=== PATIENT | female | born 1945 | race Caucasian/White ===

== ENCOUNTER → 2016-12-30 | Outpatient (CLI) | payer MEDICARE, BC ==
[~2016-12-30] MED LIST: AMOX875T2 PO; ATEN50TA PO; ATOR10TA15 PO; MULT1TAB84 PO; OMEG5CAP PO; PROT40TA PO; VENTAER INH
[2016-12-30 12:06] LABS: HDL CHOLESTEROL 49.2 MG/DL (40.0-60.0)
== END ==
LOC: PLAB 06:59
PROVIDERS: ATTEND Family Medicine
DX: E78.2 Mixed hyperlipidemia (principal)
CPT/HCPCS: 36415; 80061

== ENCOUNTER → 2017-10-29 | Outpatient (CLI) | payer MEDICARE, BC ==
[2017-10-29 12:17] LABS: BICARBONATE 29.2 MEQ/L (21.0-32.0); BLOOD UREA NITROGEN 21 MG/DL (7-18); CALCIUM 8.9 MG/DL (8.5-10.1); CHLORIDE 109 MEQ/L (98-107); CHOLESTEROL 190 MG/DL (120-200); CREATININE 1.11 MG/DL (0.50-1.00); GLOMERULAR FILTRATION RATE 48 ML/MIN (>89); GLUCOSE,FASTING 102 MG/DL (74-99); SODIUM (NA) 143 MEQ/L (136-145)
[2017-10-29 12:20] LABS: CHOLESTEROL/ HDL RATIO 4.19 RATIO; HDL CHOLESTEROL 45.3 MG/DL (40.0-60.0); LDL CHOLESTEROL 117 MG/DL (0-99); TRIGLYCERIDES 139 MG/DL (42-150)
[2017-10-29 16:55] LABS: HEMOGLOBIN A1C 5.6 % (4.3-6.0)
== END ==
LOC: PLAB 08:55
PROVIDERS: ATTEND Family Medicine
DX: R73.09 Other abnormal glucose (principal); E78.1 Pure hyperglyceridemia
CPT/HCPCS: 36415; 80048; 80061; 83036

== ENCOUNTER 2018-01-28 15:13 | Inpatient (IN) | payer MEDICARE, BC ==
[~2018-01-28] VITALS: Ht 170.2 cm; Wt 88.0 kg
[2018-01-28 15:45] VITALS: BP 118/55; PULSE 75; RESP 16; TEMP 97.8; O2SAT 97
[2018-01-28] MEDS ORDERED: METO25TA3 PO (16:02)
[2018-01-28] MEDS ORDERED: SODIUM CHLORIDE 0.9% FLUSH 10 ML FLUSH IVF PRN (16:15)
--- NOTE | 2018-01-28 16:42 | RADRPT ---
EXAM DATE/TIME: 01/28/2018 16:31 [facility] COMPARISON: No previous studies available for comparison. INDICATIONS : Left hip pain post fall today MEDICAL HISTORY : None. SURGICAL HISTORY : None. ENCOUNTER: Initial ACUITY: 1 day PAIN SCORE: 10/10 LOCATION: Left entire hip FINDINGS: Examination of the left hip was performed with AP Pelvis. The primary and secondary trabecular patte rn of the femoral neck is intact. The hip joint is of normal width without significant sclerosis or bony hypertrophy. The acetabulum is grossly intact. There is a fracture of the superior pubic ramus medially on the left CONCLUSION: Nondisplaced fracture of the suprapubic ramus on the left. The femoral head and neck are unremarkable. Harvey Miranda MD on January 28, 2018 at 16:38 Board Certified Radiologist. This report was verified electronically.
[2018-01-28 16:44] LABS: AUTOMATED NEUTROPHIL # 3.8 TH/MM3 (1.8-7.7); BASOPHIL % 0.5 % (0.0-2.0); EOSINOPHIL # 0.1 TH/MM3 (0-0.4); HEMOGLOBIN 11.5 GM/DL (11.6-15.3); LYMPH % 27.8 % (9.0-44.0); LYMPHOCYTE # 1.7 TH/MM3 (1.0-4.8); MEAN CELL VOLUME 90.4 FL (80.0-100.0); MEAN CORPUSCULAR HEMOGLOBIN 31.6 PG (27.0-34.0); MEAN PLATELET VOLUME 8.6 FL (7.0-11.0); MONO % 7.4 % (0.0-8.0); MONOCYTE # 0.4 TH/MM3 (0-0.9); NEUT % 62.3 % (16.0-70.0); PLATELET COUNT 135 TH/MM3 (150-450); RED BLOOD COUNT 3.65 MIL/MM3 (4.00-5.30); RED CELL DISTRIBUTION WIDTH 13.2 % (11.6-17.2); WHITE BLOOD COUNT 6.1 TH/MM3 (4.0-11.0)
--- NOTE | 2018-01-28 16:45 | RADRPT ---
EXAM DATE/TIME: 01/28/2018 16:27 [facility] COMPARISON: No previous studies available for comparison. INDICATIONS : Left wrist pain post fall today MEDICAL HISTORY : None. SURGICAL HISTORY : None. ENCOUNTER: Initial ACUITY: 1 day PAIN SCORE: 5/10 LOCATION: Left entire wrist FINDINGS: Three view examination of the left wrist demonstrates arthritic change of the radial scaphoid articul ation. No acute fracture seen. Bony mineralization is normal. 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 Chondrocalcinosis raises the possibility of CPPD. Harvey Miranda MD on January 28, 2018 at 16:40 Board Certified Radiologist. This report was verified electronically.
--- NOTE | 2018-01-28 16:53 | PD ---
HPI Chief Complaint: Hip Injury Time Seen by Provider: 16:09 Travel History International Travel<30 days: No Contact w/Intl Traveler<30days: No Traveled to known affect area: No History of Present Illness HPI 72 y/o female states she was trying to save baby ducks when she had a trip and fall. She did not hit her head or blackout. She has pain to her left hip and left elbow. Quality pain is sharp. Severity is severe. Pain is worse with movement. She was given morphine 2 mg prior to arrival for pain and this dropped her blood pressure significantly so additional pain medication was held. Pain is worse with movement. She denies other modifying factors. Duration shortly prior to arrival. PFSH Past Medical History Arthritis: No Asthma: Yes Heart Rhythm Problems: No Cancer: Yes (BREAST) Cardiovascular Problems: No High Cholesterol: Yes Chest Pain: No Congestive Heart Failure: No Cerebrovascular Accident: No Diabetes: No Diminished Hearing: No Endocrine: No Gastrointestinal Disorders: Yes (gerd) Glaucoma: No Headaches: No Hepatitis: No Hiatal Hernia: No Hypertension: Yes Immune Disorder: No Musculoskeletal: Yes (arthritis and previous injury) Neurologic: No Psychiatric: No Reproductive: No Respiratory: Yes (asthma, cold induced ) Migraines: No Myocardial Infarction: No Seizures: No Thyroid Disease: No Past Surgical History AICD: No Appendectomy: Yes Genitourinary Surgery: Yes (BLADDER LIFT) Gynecologic Surgery: Yes (hysterectomy) Hysterectomy: Yes Joint Replacement: No Oral Surgery: Yes (tonsillectomy,sinus surgery) Pacemaker: No Thoracic Surgery: Yes (x3 breast lumpectomy) Tonsillectomy: Yes Other Surgery: Yes (LEFT BREAST BIOPSY AND LUMPECTOMY) Social History Alcohol Use: No Tobacco Use: No Substance Use: No Allergies-Medications (Allergen,Severity, Reaction): Coded Allergies: cortisone (Unverified Allergy, Severe, RADICAL FLUSHING, 01/28/18) penicillin G (Unverified Allergy, Severe, HIVES, 01/28/18) pt states not allergic phenazopyridine (Unverified Allergy, Mild, 01/28/18) unknown reaction Uncoded Allergies: steroids (Allergy, Unknown, Restlessness, 09/03/16) all steroids Reported Meds & Prescriptions Reported Meds & Active Scripts Active Reported Metoprolol Tartrate 25 Mg Tab 25 Mg PO BID Atorvastatin (Atorvastatin Calcium) 10 Mg Tab 10 Mg PO HS Review of Systems Except as stated in HPI: all other systems reviewed are Neg Physical Exam Narrative General: 72 y/o patient in no apparent distress Skin: trauma noted to left elbow with abrasion Eyes: Pupils equal, eomi ENT: no septal hematoma NECK: no pain with palpation and range of motion in midline Cardiovascular: Regular rate and rhythm Respiratory: Normal respiratory effort noted, clear to auscultation bilaterally Abdomen: soft, nontender, nondistended Extremities: Pain with palpation of left hip, no lacerations over, neurovascularly intact, no pain with palpation of other joints except for left elbow Neuro: awake, alert, sensation and motor grossly intact Data Data Last Documented VS Vital Signs Date Time Temp Pulse Resp B/P (MAP) Pulse Ox O2 Delivery O2 Flow Rate FiO2 01/28/18 18:40 78 18 151/74 (99) 98 Room Air 01/28/18 15:45 97.8 Orders Orders Complete Blood Count With Diff (01/28/18 16:11) Comprehensive Metabolic Panel (01/28/18 16:11) Prothrombin Time / Inr (Pt) (01/28/18 16:11) Act Partial Throm Time (Ptt) (01/28/18 16:11) Type And Screen (01/28/18 16:11) Hip, Uni(Ap&Lat) W Ap Pelvis (01/28/18 16:11) Iv Access Insert/Monitor (01/28/18 16:11) Oximetry (01/28/18 16:11) Ecg Monitoring (01/28/18 16:11) Sodium Chloride 0.9% Flush (Ns Flush) (01/28/18 16:15) Wrist, Complete ([id number]) (01/28/18 ) Elbow, Complete (4 Vws) (01/28/18 ) Admit Order (Ed Use Only) (01/28/18 18:51) Labs Laboratory Tests Test 01/28/18 16:15 White Blood Count 6.1 TH/MM3 Red Blood Count 3.65 MIL/MM3 Hemoglobin 11.5 GM/DL Hematocrit 33.0 % Mean Corpuscular Volume 90.4 FL Mean Corpuscular Hemoglobin 31.6 PG Mean Corpuscular Hemoglobin Concent 35.0 % Red Cell Distribution Width 13.2 % Platelet Count 135 TH/MM3 Mean Platelet Volume 8.6 FL Neutrophils (%) (Auto) 62.3 % Lymphocytes (%) (Auto) 27.8 % Monocytes (%) (Auto) 7.4 % Eosinophils (%) (Auto) 2.0 % Basophils (%) (Auto) 0.5 % Neutrophils # (Auto) 3.8 TH/MM3 Lymphocytes # (Auto) 1.7 TH/MM3 Monocytes # (Auto) 0.4 TH/MM3 Eosinophils # (Auto) 0.1 TH/MM3 Basophils # (Auto) 0.0 TH/MM3 CBC Comment DIFF FINAL Differential Comment Prothrombin Time 10.2 SEC Prothromb Time International Ratio 1.0 RATIO Activated Partial Thromboplast Time 20.0 SEC Blood Urea Nitrogen 27 MG/DL Creatinine 1.14 MG/DL Random Glucose 118 MG/DL Total Protein 6.6 GM/DL Albumin 3.6 GM/DL Calcium Level 8.9 MG/DL Alkaline Phosphatase 56 U/L Aspartate Amino Transf (AST/SGOT) 27 U/L Alanine Aminotransferase (ALT/SGPT) 23 U/L Total Bilirubin 0.3 MG/DL Sodium Level 144 MEQ/L Potassium Level 4.0 MEQ/L Chloride Level 110 MEQ/L Carbon Dioxide Level 27.1 MEQ/L Anion Gap 7 MEQ/L Estimat Glomerular Filtration Rate 47 ML/MIN MDM Medical Decision Making Medical Screen Exam Complete: Yes Emergency Medical Condition: Yes Medical Record Reviewed: Yes (Past history confirmed) Interpretation(s) CBC & BMP Diagram 01/28/18 16:15 Total Protein 6.6, Albumin 3.6, Calcium Level 8.9, Alkaline Phosphatase 56, Aspartate Amino Transf (AST/SGOT) 27, Alanine Aminotransferase (ALT/SGPT) 23, Total Bilirubin 0.3 Last 24 hours Impressions Hip and Pelvis X-Ray 01/28/18 1611 Signed Impressions: Service Date/Time: Sunday, January 28, 2018 16:31 - CONCLUSION: Nondisplaced fracture of the suprapubic ramus on the left. The femoral head and neck are unremarkable. Harvey Miranda MD Wrist X-Ray 01/28/18 0000 Signed Impressions: Service Date/Time: Sunday, January 28, 2018 16:27 - CONCLUSION: Unremarkable examination of the left wrist except for osteoarthritis of the radial scaphoid articulation. Chondrocalcinosis raises the possibility of CPPD. Harvey Miranda MD Elbow X-Ray 01/28/18 0000 Signed Impressions: Service Date/Time: Sunday, January 28, 2018 18:00 - CONCLUSION: Comminuted fracture of the radial head with approximately 3 mm of depression. Amadou Lovett MD Differential Diagnosis Fracture, strain, sprain Narrative Course We will check blood work and trauma imaging and reevaluate ED workup shows fracture to left radial head and left superior pubic rami. Will discuss with orthopedic physician and admit, patient updated and agrees to plan Physician Communication Physician Communication dr contreras states npo after midnight dr childress agrees to admit Diagnosis Primary Impression: Elbow fracture, left Qualified Codes: S42.402A - Unspecified fracture of lower end of left humerus , initial encounter for closed fracture Additional Impression: Fracture of pubic ramus Qualified Codes: S32.592A - Other specified fracture of left pubis, initial encounter for closed fracture Admitting Information Admitting Physician Requests: Admit Kristen Ortega MD Jan 28, 2018 16:53
[2018-01-28 16:54] LABS: PROTHROMBIN TIME - PATIENT 10.2 SEC (9.8-11.6)
[2018-01-28 16:55] VITALS: O2SAT 98
[2018-01-28 17:07] LABS: ALT (GPT) 23 U/L (10-53)
[2018-01-28 17:09] LABS: ALKALINE PHOSPHATASE 56 U/L (45-117); TOTAL BILIRUBIN ADULT 0.3 MG/DL (0.2-1.0); TOTAL PROTEIN 6.6 GM/DL (6.4-8.2)
[2018-01-28 17:13] LABS: ALBUMIN 3.6 GM/DL (3.4-5.0); AST (GOT) 27 U/L (15-37); BICARBONATE 27.1 MEQ/L (21.0-32.0); BLOOD UREA NITROGEN 27 MG/DL (7-18); CALCIUM 8.9 MG/DL (8.5-10.1); CHLORIDE 110 MEQ/L (98-107); CREATININE 1.14 MG/DL (0.50-1.00); GLOMERULAR FILTRATION RATE 47 ML/MIN (>89); GLUCOSE,RANDOM 118 MG/DL (74-106); SODIUM (NA) 144 MEQ/L (136-145)
--- NOTE | 2018-01-28 18:26 | RADRPT ---
EXAM DATE/TIME: 01/28/2018 18:00 [facility] COMPARISON: No previous studies available for comparison. INDICATIONS : Patient complains of left elbow pain status post fall today. MEDICAL HISTORY : None. SURGICAL HISTORY : None. ENCOUNTER: Initial ACUITY: 1 day PAIN SCORE: 5/10 LOCATION: Left Elbow FINDINGS: There is a comminuted radial head fracture with approximately 3 mm of depression. The fracturing invo lves the lateral half of the radial head. Other bones of the left elbow are intact. There is a large lipohemarthrosis. CONCLUSION: Comminuted fracture of the radial head with approximately 3 mm of depression. Amadou Lovett MD on January 28, 2018 at 18:22 Board Certified Radiologist. This report was verified electronically.
[2018-01-28 18:40] VITALS: BP 151/74; PULSE 78; RESP 18; O2SAT 98
[2018-01-28 19:11] VITALS: BP 143/72; PULSE 75; RESP 18; O2SAT 96
[2018-01-28] MEDS: SODIUM CHLOR 0.9% 1000 ML INJ 1,000 ML IV SCH (19:36)
--- NOTE | 2018-01-28 19:39 | HHI.HP ---
[facility] Service [facility] Primary Care Physician Dante Rodriguez MD Admission Diagnosis fall, left elbow fracture, left pubic rami fracture Diagnoses: (1) Fall Diagnosis: Principal (2) Fracture of pubic ramus Diagnosis: Principal (3) Elbow fracture, left Diagnosis: Principal (4) Renal insufficiency Diagnosis: Principal Travel History International Travel<30 Days: No Contact w/Intl Traveler <30 Da: No Traveled to Known Affected Are: No History of Present Illness This is a 72-year-old female with a PMH of HTN, Hyperlipidemia and Breast CA who was brought to the ER by EMS after fall with left hip and left elbow pain. Patient states that she was trying to save 15 baby ducklings that were crossing the road on [address] when she accidentally tripped and fell onto her left side. No LOC or head trauma. On arrival, BP 118/55, HR 75, O2 sat 97% RA, Afebrile. CBC essentially unremarkable. Platelets 135, previously 140 on 04/10/2017. Creatinine 1.14, previously 1.11 on 10/29/2017. INR 1.0. Hip X-ray with nondisplaced fracture of suprapubic ramus on the left. Elbow X-ray comminuted fracture of the radial head with 3 mm of depression. Wrist X-ray unremarkable. Dr. Garcia consulted by ER physician, plan is for possible surgical intervention w/ Dr. Valdovinos in am. Review of Systems Except as stated in HPI: all other systems reviewed are Neg ROS: 14 point review of systems otherwise negative. Past Family Social History Past Medical History PMH: HTN, Hyperlipidemia and Breast CA Past Surgical History PAST SURGICAL HISTORY: Appendectomy, Bladder Lift, Hysterectomy, Tonsillectomy, Breast Lumpectomy Allergies: Coded Allergies: cortisone (Unverified Allergy, Severe, RADICAL FLUSHING, 01/28/18) penicillin G (Unverified Allergy, Severe, HIVES, 01/28/18) pt states not allergic phenazopyridine (Unverified Allergy, Mild, 01/28/18) unknown reaction Uncoded Allergies: steroids (Allergy, Unknown, Restlessness, 09/03/16) all steroids Family History PAST FAMILY HISTORY: Reviewed. No h/o DM or CAD Social History PAST SOCIAL HISTORY: Negative for alcohol, tobacco or drugs. Physical Exam Vital Signs Vital Signs Date Time Temp Pulse Resp B/P (MAP) Pulse Ox O2 Delivery O2 Flow Rate FiO2 01/28/18 19:11 75 18 143/72 (95) 96 Room Air 01/28/18 18:40 78 18 151/74 (99) 98 Room Air 01/28/18 16:55 98 Room Air 01/28/18 15:45 97.8 75 16 118/55 (76) 97 Physical Exam PE: GENERAL: Extremely pleasant elderly white female in no acute distress. Family at bedside. HEENT: PERRLA, EOMI. No scleral icterus or conjunctival pallor. No lid lag or facial droop. CARDIOVASCULAR: Regular rate and rhythm. No obvious murmurs to auscultation. No chest tenderness to palpation. RESPIRATORY: No obvious rhonchi or wheezing. Clear to auscultation. Breath sounds equal bilaterally. GASTROINTESTINAL: Abdomen soft, non-tender, nondistended. BS normal. MUSCULOSKELETAL: Extremities without clubbing, cyanosis, or edema. No obvious deformities. Decreased ROM of LUE and left hip due to injury. Pulses intact. NEUROLOGICAL: Awake, alert and oriented x4. No focal neurologic deficits. Moving both upper and lower extremities spontaneously. Laboratory Laboratory Tests Test 01/28/18 16:15 White Blood Count 6.1 Red Blood Count 3.65 Hemoglobin 11.5 Hematocrit 33.0 Mean Corpuscular Volume 90.4 Mean Corpuscular Hemoglobin 31.6 Mean Corpuscular Hemoglobin Concent 35.0 Red Cell Distribution Width 13.2 Platelet Count 135 Mean Platelet Volume 8.6 Neutrophils (%) (Auto) 62.3 Lymphocytes (%) (Auto) 27.8 Monocytes (%) (Auto) 7.4 Eosinophils (%) (Auto) 2.0 Basophils (%) (Auto) 0.5 Neutrophils # (Auto) 3.8 Lymphocytes # (Auto) 1.7 Monocytes # (Auto) 0.4 Eosinophils # (Auto) 0.1 Basophils # (Auto) 0.0 CBC Comment DIFF FINAL Differential Comment Prothrombin Time 10.2 Prothromb Time International Ratio 1.0 Activated Partial Thromboplast Time 20.0 Blood Urea Nitrogen 27 Creatinine 1.14 Random Glucose 118 Total Protein 6.6 Albumin 3.6 Calcium Level 8.9 Alkaline Phosphatase 56 Aspartate Amino Transf (AST/SGOT) 27 Alanine Aminotransferase (ALT/SGPT) 23 Total Bilirubin 0.3 Sodium Level 144 Potassium Level 4.0 Chloride Level 110 Carbon Dioxide Level 27.1 Anion Gap 7 Estimat Glomerular Filtration Rate 47 Result Diagram: 01/28/18 1615 01/28/18 1615 Caprini VTE Risk Assessment Caprini VTE Risk Assessment: Mod/High Risk (score >= 2) Caprini Risk Assessment Model Point Value = 1 Point Value = 2 Point Value = 3 Point Value = 5 Age 41-60 Minor surgery BMI > 25 kg/m2 Swollen legs Varicose veins or History of unexplained or recurrent spontaneous Oral contraceptives or hormone replacement Sepsis (< 1 month) Serious lung disease, including pneumonia (< 1 month) Abnormal pulmonary function Acute myocardial infarction Congestive heart failure (< 1 month) History of inflammatory bowel disease Medical patient at bed rest Age 61-74 Arthroscopic surgery Major open surgery (> 45 min) Laparoscopic surgery (> 45 min) Malignancy Confined to bed (> 72 hours) Immobilizing plaster cast Central venous access Age >= 75 History of VTE Family history of VTE Factor V Leiden Prothrombin [id number] Lupus anticoagulant Anticardiolipin antibodies Elevated serum homocysteine Heparin-induced thrombocytopenia Other congenital or acquired thrombophilia Stroke (< 1 month) Elective arthroplasty Hip, pelvis, or leg fracture Acute spinal cord injury (< 1 month) Prophylaxis Regimen Total Risk Factor Score Risk Level Prophylaxis Regimen 0-1 Low Early ambulation 2 Moderate Order ONE of the following: *Sequential Compression Device (SCD) *Heparin 5000 units SQ BID 3-4 Higher Order ONE of the following medications: *Heparin 5000 units SQ TID *Enoxaparin/Lovenox 40 mg SQ daily (WT < 150 kg, CrCl > 30 mL/min) *Enoxaparin/Lovenox 30 mg SQ daily (WT < 150 kg, CrCl > 10-29 mL/min) *Enoxaparin/Lovenox 30 mg SQ BID (WT < 150 kg, CrCl > 30 mL/min) AND/OR *Sequential Compression Device (SCD) 5 or more Highest Order ONE of the following medications: *Heparin 5000 units SQ TID (Preferred with Epidurals) *Enoxaparin/Lovenox 40 mg SQ daily (WT < 150 kg, CrCl > 30 mL/min) *Enoxaparin/Lovenox 30 mg SQ daily (WT < 150 kg, CrCl > 10-29 mL/min) *Enoxaparin/Lovenox 30 mg SQ BID (WT < 150 kg, CrCl > 30 mL/min) AND *Sequential Compression Device (SCD) Assessment and Plan Problem List: (1) Fall ICD Code: W19.XXXA - Unspecified fall, initial encounter (2) Elbow fracture, left ICD Code: S42.402A - Unspecified fracture of lower end of left humerus, initial encounter for closed fracture Status: Acute (3) Fracture of pubic ramus ICD Code: S32.599A - Other specified fracture of unspecified pubis, initial encounter for closed fracture Status: Acute (4) Renal insufficiency ICD Code: N28.9 - Disorder of kidney and ureter, unspecified Assessment and Plan A/P: 1. Fall: s/p mechanical trip and fall, no LOC or head trauma reported. 2. Left Elbow Fx: secondary to above, Elbow X-ray w/ comminuted fracture of radial head with approximately 3 mm of depression, images reviewed by me. Ortho consulted, possible surgical intervention w/ Dr. Valdovinos in am. NPO, IVF, analgesics/antiemetics as needed. 3. Pubic Fx: Hip/Pelvis X-ray w/ nondisplaced fracture of suprapubic ramus on the left, images reviewed by me. Possible surgical intervention. Pt declining Mullen at this time, will provide diapers. Analgesics/antiemetics. 4. Renal Insufficiency: Creatinine 1.14, previously 1.11 on 10/29/2017. IVF for hydration, repeat labs in a.m. 5. DVT Prophylaxis: Anticoagulation postop. 6. Social work for DC planning as needed. 7. Case discussed at length with the ER physician, lab/record/imaging reviewed by me. Physician Certification 2 Midnight Certification Type: Admission for Inpatient Services Order for Inpatient Services The services are ordered in accordance with Medicare regulations or non- Medicare payer requirements, as applicable. In the case of services not specified as inpatient-only, they are appropriately provided as inpatient services in accordance with the 2-midnight benchmark. Estimated LOS (days): 2 days is the estimated time the patient will need to remain in the hospital, assuming treatment plan goals are met and no additional complications. Post-Hospital Plan: Not yet determined Problem Qualifiers (1) Fracture of pubic ramus: Qualified Codes: S32.592A - Other specified fracture of left pubis, initial encounter for closed fracture (2) Elbow fracture, left: Qualified Codes: S42.402A - Unspecified fracture of lower end of left humerus, initial encounter for closed fracture Aysha Taylor MD Jan 28, 2018 19:39
[2018-01-28] MEDS ORDERED: BISACODYL 10 MG SUPP RECTAL PRN (19:45)
[2018-01-28] MEDS ORDERED: ACETAMINOPHEN/HYDROcodone 325 MG/5 MG TAB PO ONE (19:45)
[2018-01-28] MEDS ORDERED: SENNOSIDES 8.6 MG TAB PO PRN (19:45)
[2018-01-28] MEDS ORDERED: MAGNESIUM HYDROXIDE SUSP 30 ML CUP PO PRN (19:45)
[2018-01-28] MEDS ORDERED: LACTULOSE SYRUP 20 GM/30 ML CUP PO PRN (19:45)
[2018-01-28] MEDS ORDERED: SODIUM CHLORIDE 0.9% FLUSH 10 ML FLUSH IV FLUSH PRN (19:45)
[2018-01-28 21:15] VITALS: BP 145/67; PULSE 78; RESP 18; TEMP 99; O2SAT 94
[2018-01-28] MEDS: SODIUM CHLORIDE 0.9% FLUSH 10 ML FLUSH IV FLUSH SCH (21:28)
[2018-01-28] MEDS: DOCUSATE SODIUM 50 MG/SENNA 8.6 MG TAB PO SCH (21:28)
[2018-01-28] MEDS: ATORVASTATIN 10 MG TAB PO SCH (21:28)
[2018-01-28] MEDS: METOPROLOL TARTRATE 25 MG TAB PO SCH (21:28)
[2018-01-28] MEDS ORDERED: SODIUM CHLORID 0.9% 500 ML IV PRN (22:15)
[2018-01-28] MEDS ORDERED: POVIDONE IODINE 5% (ANTISEPSIS KIT) 4 APPLICATIONS EACH NARE PRN (22:15)
[2018-01-28] MEDS ORDERED: LACTATED RINGER'S 1000 ML IV PRN (22:15)
[2018-01-28] MEDS ORDERED: CHLORHEXIDINE GLUCONATE 2 % 1 PACK (2 CLOTHS) TOPICAL PRN (22:15)
[2018-01-29 00:07] VITALS: BP 128/66; PULSE 73; RESP 18; TEMP 98.2; O2SAT 95
[2018-01-29 04:00] VITALS: BP 136/59; PULSE 76; RESP 18; TEMP 98.3; O2SAT 96
[2018-01-29] MEDS: ONDANSETRON HCL 4 MG/2 ML VIAL IVP PRN ×3 (05:17→21:55)
[2018-01-29] MEDS: ACETAMINOPHEN/HYDROcodone 325 MG/5 MG TAB PO PRN ×2 (05:18→12:15)
[2018-01-29] MEDS: SODIUM CHLOR 0.9% 1000 ML INJ 1,000 ML IV SCH ×2 (05:36→08:28)
[2018-01-29 06:15] LABS: AUTOMATED NEUTROPHIL # 3.3 TH/MM3 (1.8-7.7); BASOPHIL % 0.5 % (0.0-2.0); EOSINOPHIL # 0.1 TH/MM3 (0-0.4); EOSINOPHIL % 2.4 % (0.0-4.0); HEMATOCRIT 32.3 % (35.0-46.0); HEMOGLOBIN 11.2 GM/DL (11.6-15.3); LYMPHOCYTE # 1.7 TH/MM3 (1.0-4.8); MEAN CELL VOLUME 92.1 FL (80.0-100.0); MEAN CORPUSCULAR HGB CONC 34.8 % (32.0-36.0); MEAN PLATELET VOLUME 9.1 FL (7.0-11.0); MONO % 7.4 % (0.0-8.0); MONOCYTE # 0.4 TH/MM3 (0-0.9); NEUT % 59.7 % (16.0-70.0); PLATELET COUNT 123 TH/MM3 (150-450); RED CELL DISTRIBUTION WIDTH 13.2 % (11.6-17.2); WHITE BLOOD COUNT 5.6 TH/MM3 (4.0-11.0)
[2018-01-29 06:41] LABS: ALBUMIN 3.3 GM/DL (3.4-5.0); ALT (GPT) 20 U/L (10-53); AST (GOT) 20 U/L (15-37); BLOOD UREA NITROGEN 25 MG/DL (7-18); CALCIUM 8.5 MG/DL (8.5-10.1); CHLORIDE 112 MEQ/L (98-107); CREATININE 1.02 MG/DL (0.50-1.00); GLOMERULAR FILTRATION RATE 53 ML/MIN (>89); GLUCOSE,RANDOM 97 MG/DL (74-106); SODIUM (NA) 146 MEQ/L (136-145)
[2018-01-29 06:43] LABS: ALKALINE PHOSPHATASE 52 U/L (45-117); TOTAL BILIRUBIN ADULT 0.6 MG/DL (0.2-1.0); TOTAL PROTEIN 6.3 GM/DL (6.4-8.2)
[2018-01-29 07:11] VITALS: BP 134/67; PULSE 79; RESP 18; TEMP 99.2; O2SAT 93
[2018-01-29] MEDS: DOCUSATE SODIUM 50 MG/SENNA 8.6 MG TAB PO SCH ×2 (08:25→21:55)
[2018-01-29] MEDS: METOPROLOL TARTRATE 25 MG TAB PO SCH ×2 (08:25→21:55)
[2018-01-29] MEDS: SODIUM CHLORIDE 0.9% FLUSH 10 ML FLUSH IV FLUSH SCH ×2 (08:28→21:00)
--- NOTE | 2018-01-29 09:07 | PD.ORT.PN ---
Subjective Subjective Remarks Mechanical fall yesterday. Left hip and left elbow pain Objective Vitals Vital Signs Date Time Temp Pulse Resp B/P (MAP) Pulse Ox O2 Delivery O2 Flow Rate FiO2 01/29/18 07:11 99.2 79 18 134/67 (89) 93 01/29/18 04:00 98.3 76 18 136/59 (84) 96 01/29/18 00:07 98.2 73 18 128/66 (86) 95 01/28/18 21:15 99.0 78 18 145/67 (93) 94 01/28/18 19:11 75 18 143/72 (95) 96 Room Air 01/28/18 18:40 78 18 151/74 (99) 98 Room Air 01/28/18 16:55 98 Room Air 01/28/18 15:45 97.8 75 16 118/55 (76) 97 I/O 01/28/18 01/28/18 01/28/18 01/29/18 01/29/18 01/29/18 07:00 15:00 23:00 07:00 15:00 23:00 Intake Total 658 ml Balance 658 ml Intake Oral 120 ml IV Total 538 ml # Voids 3 # Bowel Movements 0 Result Diagram: 01/29/18 0512 01/29/18 0512 Other Results Laboratory Tests Test 01/28/18 16:15 Prothromb Time International Ratio 1.0 RATIO Prothrombin Time 10.2 SEC (9.8-11.6) Imaging Last 72 hours Impressions Hip and Pelvis X-Ray 01/28/18 1611 Signed Impressions: Service Date/Time: Sunday, January 28, 2018 16:31 - CONCLUSION: Nondisplaced fracture of the suprapubic ramus on the left. The femoral head and neck are unremarkable. Harvey Miranda MD Wrist X-Ray 01/28/18 0000 Signed Impressions: Service Date/Time: Sunday, January 28, 2018 16:27 - CONCLUSION: Unremarkable examination of the left wrist except for osteoarthritis of the radial scaphoid articulation. Chondrocalcinosis raises the possibility of CPPD. Harvey Miranda MD Elbow X-Ray 01/28/18 0000 Signed Impressions: Service Date/Time: Sunday, January 28, 2018 18:00 - CONCLUSION: Comminuted fracture of the radial head with approximately 3 mm of depression. Amadou Lovett MD Last 24 hours Impressions Hip and Pelvis X-Ray 01/28/18 1611 Signed Impressions: Service Date/Time: Sunday, January 28, 2018 16:31 - CONCLUSION: Nondisplaced fracture of the suprapubic ramus on the left. The femoral head and neck are unremarkable. Harvey Miranda MD Objective Remarks Left upper extremity: No pain with shoulder motion. Long-arm splint in place. Intact sensation distally over radial ulnar median nerve distributions with good capillary refills. She is able to extend her fingers and she had to make a fist. Left lower extremity: Pain to palpation over pelvis. She has moderate tenderness with movement of the hip. She has no pain with knee or ankle range of motion. Distally she has intact sensation and good capillary refills. Assessment & Plan Assessment and Plan Left radial head fracture minimally displaced Maintain splint. May use platform walker on left upper extremity Sling when sitting up Left pubic rami fractures Weightbearing as tolerated left lower extremity: Discharge planning with case management Follow-up x-rays in 2 weeks for left radial head and left pubic rami fractures Lamberto Zhong Jr. Jan 29, 2018 09:07
--- NOTE | 2018-01-29 09:18 | HHI.PR ---
Subjective Remarks Patient reports she is feeling okay. Pain is controlled. She wants to eat. Seen by orthopedics, recommend conservative management. Objective Vitals Vital Signs Date Time Temp Pulse Resp B/P (MAP) Pulse Ox O2 Delivery O2 Flow Rate FiO2 01/29/18 07:11 99.2 79 18 134/67 (89) 93 01/29/18 04:00 98.3 76 18 136/59 (84) 96 01/29/18 00:07 98.2 73 18 128/66 (86) 95 01/28/18 21:15 99.0 78 18 145/67 (93) 94 01/28/18 19:11 75 18 143/72 (95) 96 Room Air 01/28/18 18:40 78 18 151/74 (99) 98 Room Air 01/28/18 16:55 98 Room Air 01/28/18 15:45 97.8 75 16 118/55 (76) 97 I/O 01/28/18 01/28/18 01/28/18 01/29/18 01/29/18 01/29/18 07:00 15:00 23:00 07:00 15:00 23:00 Intake Total 658 ml Balance 658 ml Intake Oral 120 ml IV Total 538 ml # Voids 3 # Bowel Movements 0 Result Diagram: 01/29/18 0512 01/29/18 0512 Objective Remarks GENERAL: This is a well-nourished, well-developed patient, in no apparent distress. CARDIOVASCULAR: Normal rate and regular rhythm without murmurs, gallops, or rubs. RESPIRATORY: Good respiratory efforts. Breath sounds equal and clear to auscultation bilaterally. GASTROINTESTINAL: Abdomen soft, non-tender, non-distended. Normal active bowel sounds MUSCULOSKELETAL: Left upper extremity is splinted. Neurovascularly intact at the fingers. NEURO: Alert & Oriented x4 to person, place, time, situation. Moves all ext x4 PSYCH: Appropriate mood and affect. A/P Problem List: (1) Fall ICD Code: W19.XXXA - Unspecified fall, initial encounter (2) Elbow fracture, left ICD Code: S42.402A - Unspecified fracture of lower end of left humerus, initial encounter for closed fracture Status: Acute (3) Fracture of pubic ramus ICD Code: S32.599A - Other specified fracture of unspecified pubis, initial encounter for closed fracture Status: Acute (4) Renal insufficiency ICD Code: N28.9 - Disorder of kidney and ureter, unspecified Assessment and Plan 72-year-old female with: 1. Fall: s/p mechanical trip and fall, no LOC or head trauma reported. 2. Left Elbow Fx: secondary to above, Elbow X-ray w/ comminuted fracture of radial head with approximately 3 mm of depression -Orthopedic surgery following. Maintain splint. Follow-up x-ray in 2 weeks - Pain control 3. Pubic Fx: Hip/Pelvis X-ray w/ nondisplaced fracture of suprapubic ramus on the left -Orthopedics following. Weightbearing as tolerated left lower extremity. PT. Follow-up x-ray in 2 weeks 4. CKD: Not far from baseline. Stable 5. DVT Prophylaxis: Start Heparin Discharge Planning PT eval today. Anticipate DC in 24 hrs Home with C vs rehab. Problem Qualifiers (1) Elbow fracture, left: Qualified Codes: S42.402A - Unspecified fracture of lower end of left humerus, initial encounter for closed fracture (2) Fracture of pubic ramus: Qualified Codes: S32.592A - Other specified fracture of left pubis, initial encounter for closed fracture Yessenia Jones MD Jan 29, 2018 09:18
--- NOTE | 2018-01-29 09:23 | MB ---
cc: Romario Valdovinos MD DATE: 01/29/2018 REASON FOR CONSULTATION: Left radial head fracture, left pubic ramus fracture CONSULTING PHYSICIAN: Dr. Taylor. HISTORY OF PRESENT ILLNESS: Georgette is a 72-year-old female who has a history of hypertension and high cholesterol and breast cancer. She describes a mechanical fall. She states that they were 15 baby ducks that were crossing [facility]. She stopped to help get the ducks across the road. She fell and landed on her left side. She had immediate left elbow and left hip pain. She presented in the Emergency Room where x-rays revealed a nondisplaced pubic ramus fracture and a mildly comminuted radial head fracture. She is currently awake and alert. Her only complaint is her left elbow and left hip. Pain is improved with rest and is worse with movement. She denies dizziness, syncope, or loss of consciousness. PAST MEDICAL HISTORY: Hypertension, high cholesterol, and breast cancer. PAST SURGICAL HISTORY: Appendectomy, bladder lift, hysterectomy, tonsillectomy, and breast lumpectomy. ALLERGIES: 1. CORTISONE 2. PENICILLIN. FAMILY HISTORY: Noncontributory. She denies any familial medical problems. SOCIAL HISTORY: The patient denies alcohol, tobacco or drug use. REVIEW OF SYSTEMS: The patient denies headache, visual changes, neck pain, chest pain, shortness of breath, abdominal pain, nausea, vomiting, recent weight loss, fevers or chills, or numbness or tingling of extremities. She complains of left elbow pain and left hip pain. The pain is worse with movement. LABORATORY DATA: The patient has a white blood cell count of 5.6, platelet count of 123, hematocrit of 32.3. INR of 1.0. BUN of 25 and creatinine is 1.01. IMAGING STUDIES: X-rays of the left elbow were reviewed. X-rays reveal a mildly displaced impacted left radial head fracture. The elbow was concentrically reduced. X-rays of the pelvis were reviewed. X-rays reveal minimally displaced left pubic ramus fractures. Bilateral femoral necks appear to be intact. She has good joint space in both hips. PHYSICAL EXAMINATION: GENERAL: The patient is a pleasant 72-year-old female. She is awake and alert. She is alert and oriented x 3. She appears developed, well nourished. She is in no acute distress. VITAL SIGNS: Temperature 99.2, pulse 79, respirations 18, blood pressure 134/67, O2 saturations 93% on room air. HEENT: Head: The patient is normocephalic. Pupils are equal. NECK: Soft, nontender. The trachea is in the midline. ABDOMEN: Soft, nontender, and nondistended. EXTREMITIES: Examination of the left arm reveals no tenderness about her shoulder. She has intact sensation in radial, ulnar, and median nerve distributions. She has good cap refill in her fingers. Skin is intact. She has tenderness to palpation directly over the radial head and elbow. She has mild discomfort with elbow range of motion. Skin is intact. Examination of left leg reveals minimal pain with gentle hip, knee, or ankle motion. Skin is intact. Dorsalis pedis pulses palpable. Sensation is intact. Examination of right leg reveals no pain with hip, knee or ankle motion. Skin is intact. Dorsalis pedis pulses palpable. Sensation is intact. Examination of right arm reveals no pain with shoulder, elbow and wrist motion. Skin is intact. Radial pulses palpable. Sensation is intact in radial, ulnar, and median nerve distributions. Examination of her pelvis reveals tenderness along the left side of her pubic ramus. IMPRESSION: 1. Mildly displaced left radial head fracture. 2. Hypertension. 3. High cholesterol. 4. Breast cancer. 5. Osteoporosis. 6. Minimally displaced left pubic ramus fractures. PLAN: Treatment options were discussed with the patient. At this point, I would recommend nonsurgical treatment. The patient may use a walker with a platform. She may weightbear as tolerated on her left leg. She may use a platform and weightbear as tolerated on her left forearm. She will remain in a splint. I would recommend that she followup with Orthopedics in 7-10 days for repeat x-rays of the left elbow and pelvis. The patient is in agreement with this plan. All questions were answered. I explained to her that there was a chance she may need surgical intervention in the future if the fracture around the elbow displaces further. She should start calcium and vitamin D supplementation for osteoporosis. A mid-level provider in my office, nurse practitioner or PA, may see this patient on a follow-up basis and continue to implement the objective of this plan including: Starting or adjusting medications, injections of muscle, tendon, bursa or joints, cast application, orthotic or brace application, physical therapy, further radiographic studies including x-ray, MRI, CT, ultrasounds or bone scan, vascular studies, neurologic studies, or other specialist consultations, and proceeding with surgical management as appropriate. Romario MD AWA Marte/VIANCA , 09:00 AM , 09:21 AM
--- NOTE | 2018-01-29 10:15 | EKG ---
Date Performed: 01/29/2018 Time Performed: 06:30:14 PTAGE: 72 years EKG: Sinus rhythm Normal ECG Since the PREVIOUS TRACING , no significant change noted DOCTOR: Truman Rutherford Interpretating Date/Time 01/29/2018 10:14:47
[2018-01-29] MEDS: MORPHINE SULFATE 2 MG/ML SYRINGE IV PUSH PRN ×3 (11:11→21:55)
[2018-01-29 11:28] VITALS: BP 129/65; PULSE 67; RESP 18; TEMP 98.2; O2SAT 95
[2018-01-29] MEDS ORDERED: PROMETHAZINE INJ 25 MG/ML VIAL IM PRN (15:15)
[2018-01-29 15:57] VITALS: BP 124/63; PULSE 63; RESP 18; TEMP 98.4; O2SAT 95
[2018-01-29 20:00] VITALS: BP 116/60; PULSE 66; RESP 18; TEMP 99.6; O2SAT 90
[2018-01-29] MEDS: ATORVASTATIN 10 MG TAB PO SCH (21:55)
[2018-01-30] VITALS (7 sets, daily range): BP systolic 107–140; BP diastolic 55–79; PULSE 70–78; RESP 16–20; TEMP 98.7–100.7; O2SAT 90–95
[2018-01-30] MEDS: ACETAMINOPHEN/HYDROcodone 325 MG/5 MG TAB PO PRN ×4 (02:32→23:02)
[2018-01-30] MEDS: DOCUSATE SODIUM 50 MG/SENNA 8.6 MG TAB PO SCH ×2 (09:05→19:41)
[2018-01-30] MEDS: METOPROLOL TARTRATE 25 MG TAB PO SCH ×2 (09:05→19:41)
[2018-01-30] MEDS: SODIUM CHLORIDE 0.9% FLUSH 10 ML FLUSH IV FLUSH SCH ×2 (09:06→19:42)
--- NOTE | 2018-01-30 09:43 | PD.ORT.PN ---
Subjective Subjective Remarks Pain is controlled with no new complaint Objective Vitals Vital Signs Date Time Temp Pulse Resp B/P (MAP) Pulse Ox O2 Delivery O2 Flow Rate FiO2 01/30/18 08:00 99.8 73 18 107/64 (78) 92 01/30/18 04:00 99.7 70 20 110/57 (74) 92 01/30/18 00:00 99.4 72 18 115/57 (76) 90 01/29/18 20:00 99.6 66 18 116/60 (78) 90 01/29/18 15:57 98.4 63 18 124/63 (83) 95 01/29/18 11:28 98.2 67 18 129/65 (86) 95 I/O 01/29/18 01/29/18 01/29/18 01/30/18 01/30/18 01/30/18 07:00 15:00 23:00 07:00 15:00 23:00 Intake Total 658 ml 600 ml 500 ml Balance 658 ml 600 ml 500 ml Intake Oral 120 ml 600 ml 500 ml IV Total 538 ml # Voids 3 2 1 # Bowel Movements 0 0 0 Result Diagram: 01/29/18 0512 01/29/18 0512 Imaging Last 72 hours Impressions Hip and Pelvis X-Ray 01/28/18 1611 Signed Impressions: Service Date/Time: Sunday, January 28, 2018 16:31 - CONCLUSION: Nondisplaced fracture of the suprapubic ramus on the left. The femoral head and neck are unremarkable. Harvey Miranda MD Wrist X-Ray 01/28/18 0000 Signed Impressions: Service Date/Time: Sunday, January 28, 2018 16:27 - CONCLUSION: Unremarkable examination of the left wrist except for osteoarthritis of the radial scaphoid articulation. Chondrocalcinosis raises the possibility of CPPD. Harvey Miranda MD Elbow X-Ray 01/28/18 0000 Signed Impressions: Service Date/Time: Sunday, January 28, 2018 18:00 - CONCLUSION: Comminuted fracture of the radial head with approximately 3 mm of depression. Amadou Lovett MD Last 24 hours Impressions Hip and Pelvis X-Ray 01/28/18 1611 Signed Impressions: Service Date/Time: Sunday, January 28, 2018 16:31 - CONCLUSION: Nondisplaced fracture of the suprapubic ramus on the left. The femoral head and neck are unremarkable. Harvey Miranda MD Objective Remarks Left upper extremity: No pain with shoulder motion. Long-arm splint in place. Intact sensation distally over radial ulnar median nerve distributions with good capillary refills. She is able to extend her fingers and she had to make a fist. Left lower extremity: Pain to palpation over pelvis. She has moderate tenderness with movement of the hip. She has no pain with knee or ankle range of motion. Distally she has intact sensation and good capillary refills. Assessment & Plan Assessment and Plan Left radial head fracture minimally displaced Maintain splint. May use platform walker on left upper extremity Sling when sitting up Left pubic rami fractures Weightbearing as tolerated left lower extremity: Discharge planning with case management Incentive spirometry Follow-up x-rays in 2 weeks for left radial head and left pubic rami fractures Lamberto Zhong Jr. Jan 30, 2018 09:43
[2018-01-30] MEDS ORDERED: SODIUM CHLOR 0.45% 1000 ML INJ 1,000 ML IV SCH (15:00)
[2018-01-30] MEDS ORDERED: DOCUSATE SODIUM 50 MG/SENNA 8.6 MG TAB PO ONE (15:00)
[2018-01-30] MEDS ORDERED: MAGNESIUM HYDROXIDE SUSP 30 ML CUP PO ONE (15:00)
[2018-01-30 17:38] LABS: BICARBONATE 29.3 MEQ/L (21.0-32.0); CALCIUM 8.6 MG/DL (8.5-10.1); CREATININE 1.07 MG/DL (0.50-1.00)
[2018-01-30] MEDS: ATORVASTATIN 10 MG TAB PO SCH (19:42)
[2018-01-30] MEDS: ACETAMINOPHEN 325 MG TAB PO PRN (19:42)
--- NOTE | 2018-01-30 23:06 | HHI.PR ---
Subjective Remarks Patient seen today around noon. Says she is feeling all right. She is agreeable to going to SNF tomorrow. Status post bowel. Objective Vital Signs Date Time Temp Pulse Resp B/P (MAP) Pulse Ox O2 Delivery O2 Flow Rate FiO2 01/30/18 19:36 100.7 78 16 135/63 (87) 95 01/30/18 16:00 99.5 77 18 140/79 (99) 95 01/30/18 11:57 98.9 76 18 108/55 (72) 93 01/30/18 08:00 99.8 73 18 107/64 (78) 92 01/30/18 04:00 99.7 70 20 110/57 (74) 92 01/30/18 00:00 99.4 72 18 115/57 (76) 90 I/O 01/30/18 01/30/18 01/30/18 01/31/18 01/31/18 01/31/18 07:00 15:00 23:00 07:00 15:00 23:00 Intake Total 500 ml 1420 ml Balance 500 ml 1420 ml Intake Oral 500 ml 1100 ml IV Total 320 ml # Voids 1 6 # Bowel Movements 0 1 Result Diagram: 01/29/18 0512 01/30/18 1542 Objective Remarks GENERAL: patient sitting up in bed. Appears comfortable. Alert and oriented 3. SKIN: Warm and dry. HEAD: Normocephalic. EYES: No scleral icterus. No injection or drainage. NECK: Supple, trachea midline. No JVD. CARDIOVASCULAR: Regular rate and rhythm without murmurs, gallops, or rubs. RESPIRATORY: Breath sounds equal bilaterally. No accessory muscle use. GASTROINTESTINAL: Abdomen soft, non-tender, nondistended. MUSCULOSKELETAL: No cyanosis, or edema. left arm splinted. BACK: Nontender without obvious deformity. No CVA tenderness. A/P Assessment and Plan 01/30. Patient recovering. Requiring platform walker. We'll need to go to SNF/ rehabilitation. Appreciate PT assistance. //Hypernatremia 146 yesterday. Repeat labs this afternoon 141. Resolved. 72-year-old female with: 1. Fall: s/p mechanical trip and fall, no LOC or head trauma reported. 2. Left Elbow Fx: secondary to above, Elbow X-ray w/ comminuted fracture of radial head with approximately 3 mm of depression -Orthopedic surgery following. Maintain splint. Follow-up x-ray in 2 weeks - Pain control 3. Pubic Fx: Hip/Pelvis X-ray w/ nondisplaced fracture of suprapubic ramus on the left -Orthopedics following. Weightbearing as tolerated left lower extremity. PT. Follow-up x-ray in 2 weeks 4. CKD: Not far from baseline. Stable 5. DVT Prophylaxis: Start Heparin Discharge Planning discharged to SNF tomorrow. Lei Payne MD Jan 30, 2018 23:06
[2018-01-31] MEDS: ACETAMINOPHEN/HYDROcodone 325 MG/5 MG TAB PO PRN ×4 (02:54→22:18)
[2018-01-31 08:00] VITALS: BP 147/68; PULSE 82; RESP 20; TEMP 99.1; O2SAT 93
[2018-01-31] MEDS: SODIUM CHLORIDE 0.9% FLUSH 10 ML FLUSH IV FLUSH SCH ×2 (09:09→22:12)
[2018-01-31] MEDS: METOPROLOL TARTRATE 25 MG TAB PO SCH ×2 (09:10→22:13)
--- NOTE | 2018-01-31 09:14 | HHI.PR ---
Subjective Remarks Patient says she is feeling all right. Feels like she would like to go to rehab. Patient did have temperature of 100.7 overnight. She denies any cough cold symptoms. Denies any burning when she pees. She did have some moments overnight, however had laxatives. Denies any abdominal pain. Objective Vital Signs Date Time Temp Pulse Resp B/P (MAP) Pulse Ox O2 Delivery O2 Flow Rate FiO2 01/30/18 23:36 98.7 73 17 115/58 (77) 93 01/30/18 19:36 100.7 78 16 135/63 (87) 95 01/30/18 16:00 99.5 77 18 140/79 (99) 95 01/30/18 11:57 98.9 76 18 108/55 (72) 93 I/O 01/30/18 01/30/18 01/30/18 01/31/18 01/31/18 01/31/18 07:00 15:00 23:00 07:00 15:00 23:00 Intake Total 500 ml 1420 ml 320 ml Output Total 2 ml Balance 500 ml 1420 ml 318 ml Intake Oral 500 ml 1100 ml 100 ml IV Total 320 ml 220 ml Output Urine Total 2 ml # Voids 1 6 # Bowel Movements 0 1 1 Result Diagram: 01/29/18 0512 01/30/18 1542 Objective Remarks GENERAL: patient sitting up in chair. Appears comfortable. Alert and oriented 3. SKIN: Warm and dry. HEAD: Normocephalic. EYES: No scleral icterus. No injection or drainage. NECK: Supple, trachea midline. No JVD. CARDIOVASCULAR: Regular rate and rhythm without murmurs, gallops, or rubs. RESPIRATORY: Breath sounds equal bilaterally. No accessory muscle use. GASTROINTESTINAL: Abdomen soft, non-tender, nondistended. MUSCULOSKELETAL: No cyanosis, or edema. left arm splinted. BACK: Nontender without obvious deformity. No CVA tenderness. A/P Assessment and Plan 01/31. Temperature 100.7 overnight. Will check CBC, chest x-ray, urinalysis. No signs of infection. Patient will be stable for discharge otherwise. 01/30. Patient recovering. Requiring platform walker. We'll need to go to SNF/ rehabilitation. Appreciate PT assistance. //Hypernatremia 146 yesterday. Repeat labs this afternoon 141. Resolved. 72-year-old female with: 1. Fall: s/p mechanical trip and fall, no LOC or head trauma reported. 2. Left Elbow Fx: secondary to above, Elbow X-ray w/ comminuted fracture of radial head with approximately 3 mm of depression -Orthopedic surgery following. Maintain splint. Follow-up x-ray in 2 weeks - Pain control 3. Pubic Fx: Hip/Pelvis X-ray w/ nondisplaced fracture of suprapubic ramus on the left -Orthopedics following. Weightbearing as tolerated left lower extremity. PT. Follow-up x-ray in 2 weeks 4. CKD: Not far from baseline. Stable 5. DVT Prophylaxis: Start Heparin Discharge Planning discharged to SNF tomorrow. Discharge Planning Discharge delayed due to temperature of 100.7 overnight. Hopefully can go to SNF/rehab if afebrile today. Lei Payne MD Jan 31, 2018 09:14
--- NOTE | 2018-01-31 09:47 | RADRPT ---
EXAM DATE/TIME: 01/31/2018 09:14 [facility] COMPARISON: CHEST PA & LAT, September 03, 2016, 10:52. INDICATIONS : Evaluate diaphragm. Fever. MEDICAL HISTORY : Asthma. SURGICAL HISTORY : Tonsillectomy. Hysterectomy. Bilateral knee arthroscopies. ENCOUNTER: Initial ACUITY: 4 - 6 days PAIN SCORE: 0/10 LOCATION: chest FINDINGS: Portable AP view of the chest demonstrates a normal-sized cardiac silhouette. There is a retrocardiac partially air-containing mass. There is opacity at the left lung base adjacent to the mass. No pleur al effusion or pneumothorax is identified. The bones and soft tissues demonstrate no acute finding. CONCLUSION: 1. Persistent moderate to large hiatal hernia. 2. Opacity at the left lung base adjacent to the hernia could represent compressive atelectasis. Montaño michelle, since it is new since the prior study, consolidation/infectious process could have a similar enriqueta earance. Amadou Hassan MD on January 31, 2018 at 9:41 Board Certified Radiologist. This report was verified electronically.
[2018-01-31 10:50] LABS: BACTERIA, URINE MANY /hpf; BILIRUBIN, URINE NEG (NEG); BLOOD, URINE MOD (NEG); GLUCOSE,URINE NEG (NEG); KETONE, URINE 10 mg/dL (NEG); MUCUS URINE FEW /lpf (OCC); NITRITE,URINE POS (NEG); PH, URINE 5.5 (5.0-8.5); SQUAMOUS EPITHELIAL CELL URINE 2 /hpf (0-5); URINE COLOR YELLOW (YELLW/STRAW); URINE LEUKOCYTE ESTERASE LARGE (NEG); WHITE BLOOD CELL CLUMPS FEW
[2018-01-31] MEDS: HEPARIN SODIUM - SQ 10,000 UNITS/ML VIAL SQ SCH ×2 (11:50→17:27)
[2018-01-31 12:00] VITALS: BP 147/80; PULSE 68; RESP 20; TEMP 99.1; O2SAT 96
[2018-01-31 12:08] LABS: AUTOMATED NEUTROPHIL # 4.8 TH/MM3 (1.8-7.7); BASOPHIL # 0.1 TH/MM3 (0-0.2); EOSINOPHIL # 0.1 TH/MM3 (0-0.4); EOSINOPHIL % 1.2 % (0.0-4.0); HEMATOCRIT 34.8 % (35.0-46.0); HEMOGLOBIN 11.8 GM/DL (11.6-15.3); LYMPH % 16.6 % (9.0-44.0); LYMPHOCYTE # 1.1 TH/MM3 (1.0-4.8); MEAN CELL VOLUME 92.2 FL (80.0-100.0); MEAN CORPUSCULAR HEMOGLOBIN 31.3 PG (27.0-34.0); MEAN PLATELET VOLUME 8.1 FL (7.0-11.0); MONO % 7.7 % (0.0-8.0); MONOCYTE # 0.5 TH/MM3 (0-0.9); NEUT % 73.5 % (16.0-70.0); PLATELET COUNT 126 TH/MM3 (150-450); RED BLOOD COUNT 3.77 MIL/MM3 (4.00-5.30); WHITE BLOOD COUNT 6.5 TH/MM3 (4.0-11.0)
[2018-01-31] MEDS ORDERED: HYDR-3516 PO (15:12)
[2018-01-31] MEDS ORDERED: CIPR250T52 PO (15:17)
--- NOTE | 2018-01-31 15:22 | HHI.DS ---
Discharge Summary Admission Date Jan 28, 2018 at 19:39 Discharge Date: Jan 31, 2018 Admitting Diagnosis fall, left elbow fracture, left pubic rami fracture (1) Fall ICD Code: W19.XXXA - Unspecified fall, initial encounter (2) Elbow fracture, left ICD Code: S42.402A - Unspecified fracture of lower end of left humerus, initial encounter for closed fracture Status: Acute (3) Fracture of pubic ramus ICD Code: S32.599A - Other specified fracture of unspecified pubis, initial encounter for closed fracture Status: Acute (4) Renal insufficiency ICD Code: N28.9 - Disorder of kidney and ureter, unspecified Brief History - From Admission This is a 72-year-old female with a PMH of HTN, Hyperlipidemia and Breast CA who was brought to the ER by EMS after fall with left hip and left elbow pain. Patient states that she was trying to save 15 baby ducklings that were crossing the [address] on [facility] when she accidentally tripped and fell onto her left side. No LOC or head trauma. On arrival, BP 118/55, HR 75, O2 sat 97% RA, Afebrile. CBC essentially unremarkable. Platelets 135, previously 140 on 04/10/2017. Creatinine 1.14, previously 1.11 on 10/29/2017. INR 1.0. Hip X-ray with nondisplaced fracture of suprapubic ramus on the left. Elbow X-ray comminuted fracture of the radial head with 3 mm of depression. Wrist X-ray unremarkable. Dr. Garcia consulted by ER physician, plan is for possible surgical intervention w/ Dr. Valdovinos in am. CBC/BMP: 01/31/18 1142 01/30/18 1542 Significant Findings Laboratory Tests Test 01/28/18 16:15 01/29/18 05:12 01/30/18 15:42 01/31/18 10:10 Red Blood Count 3.65 MIL/MM3 (4.00-5.30) 3.50 MIL/MM3 (4.00-5.30) Hemoglobin 11.5 GM/DL (11.6-15.3) 11.2 GM/DL (11.6-15.3) Hematocrit 33.0 % (35.0-46.0) 32.3 % (35.0-46.0) Platelet Count 135 TH/MM3 (150-450) 123 TH/MM3 (150-450) Activated Partial Thromboplast Time 20.0 SEC (24.3-30.1) Blood Urea Nitrogen 27 MG/DL (7-18) 25 MG/DL (7-18) 19 MG/DL (7-18) Creatinine 1.14 MG/DL (0.50-1.00) 1.02 MG/DL (0.50-1.00) 1.07 MG/DL (0.50-1.00) Random Glucose 118 MG/DL (74-106) Chloride Level 110 MEQ/L (98-107) 112 MEQ/L (98-107) Estimat Glomerular Filtration Rate 47 ML/MIN (>89) 53 ML/MIN (>89) 51 ML/MIN (>89) Total Protein 6.3 GM/DL (6.4-8.2) Albumin 3.3 GM/DL (3.4-5.0) Sodium Level 146 MEQ/L (136-145) Urine Turbidity HAZY (CLEAR) Urine Protein 30 mg/dL (NEG-TRACE) Urine Ketones 10 mg/dL (NEG) Urine Occult Blood MOD (NEG) Urine Nitrite POS (NEG) Urine Leukocyte Esterase LARGE (NEG) Urine RBC 5 /hpf (0-3) Urine WBC Clumps FEW (NONE) Urine Bacteria MANY /hpf (NONE) Urine Mucus FEW /lpf (OCC) Test 01/31/18 11:42 Red Blood Count 3.77 MIL/MM3 (4.00-5.30) Hematocrit 34.8 % (35.0-46.0) Platelet Count 126 TH/MM3 (150-450) Neutrophils (%) (Auto) 73.5 % (16.0-70.0) PE at Discharge GENERAL: This is a well-nourished, well-developed patient, in no apparent distress. CARDIOVASCULAR: Normal rate and regular rhythm without murmurs, gallops, or rubs. RESPIRATORY: Good respiratory efforts. Breath sounds equal and clear to auscultation bilaterally. GASTROINTESTINAL: Abdomen soft, non-tender, non-distended. Normal active bowel sounds MUSCULOSKELETAL: Left upper extremity is splinted. Neurovascularly intact at the fingers. NEURO: Alert & Oriented x4 to person, place, time, situation. Moves all ext x4 PSYCH: Appropriate mood and affect. Hospital Course 01/31. Temperature 100.7 overnight. Will check CBC, chest x-ray, urinalysis. No signs of infection. Patient will be stable for discharge otherwise. //Chest xray with julius atelectasis LLL. cont IS and Acapella. repeat CXR in 1-2 days. DC to [facility]. cxr can be repeated at [facility]. //possible UTI: innumerable WBX on UA - no signs of pyelo. start Cipro. urine culture can be followed at [facility]. 01/30. Patient recovering. Requiring platform walker. We'll need to go to SNF/ rehabilitation. Appreciate PT assistance. //Hypernatremia 146 yesterday. Repeat labs this afternoon 141. Resolved. 72-year-old female with: 1. Fall: s/p mechanical trip and fall, no LOC or head trauma reported. 2. Left Elbow Fx: secondary to above, Elbow X-ray w/ comminuted fracture of radial head with approximately 3 mm of depression -Orthopedic surgery following. Maintain splint. Follow-up x-ray in 2 weeks - Pain control 3. Pubic Fx: Hip/Pelvis X-ray w/ nondisplaced fracture of suprapubic ramus on the left -Orthopedics following. Weightbearing as tolerated left lower extremity. PT. Follow-up x-ray in 2 weeks 4. CKD: Not far from baseline. Stable 5. DVT Prophylaxis: Start Heparin Discharge Planning discharged to SNF tomorrow. Discharge Planning Discharge delayed due to temperature of 100.7 overnight. Hopefully can go to SNF/rehab if afebrile today. Pt Condition on Discharge: Good Discharge Disposition: Rehab Inpatient Discharge Time: > 30 minutes Discharge Instructions DIET: Follow Instructions for: Heart Healthy Diet Activities you can perform: See Additionl Instruction Activities to Avoid: Lifting/Bending Follow up Referrals: Orthopedics - 1 Week with Georgi Garcia MD New Medications: Ciprofloxacin (Cipro) 250 Mg Tab 250 MG PO BID for Infection for 10 Days, #20 TAB 0 Refills Hydrocodone/Acetaminophen (Hydrocodone-Acetamin 5-325 mg) 5 Mg-325 Mg Tablet 1-2 TAB PO Q4H PRN for PAIN SCALE 1 TO 10, #20 TAB Continued Medications: Atorvastatin (Atorvastatin) 10 Mg Tab 10 MG PO HS for Cholesterol Management, TAB 0 Refills Metoprolol Tartrate (Metoprolol Tartrate) 25 Mg Tab 25 MG PO BID, #60 TAB 0 Refills Lei Payne MD Jan 31, 2018 15:22
[2018-01-31 16:00] VITALS: BP 131/72; PULSE 80; RESP 18; TEMP 98.8; O2SAT 93
[2018-01-31 20:00] VITALS: BP 132/59; PULSE 88; RESP 17; TEMP 99.1; O2SAT 95
[2018-01-31] MEDS ORDERED: MORPHINE SULFATE 4 MG/ML INJ IV PUSH PRN (20:15)
[2018-01-31] MEDS: CIPROFLOXACIN 250 MG TAB PO SCH (22:12)
[2018-01-31] MEDS: ATORVASTATIN 10 MG TAB PO SCH (22:13)
[2018-02-01 00:01] VITALS: BP 129/63; PULSE 75; RESP 17; TEMP 100.1; O2SAT 95
[2018-02-01] MEDS: ACETAMINOPHEN 325 MG TAB PO PRN (00:55)
[2018-02-01] MEDS: HEPARIN SODIUM - SQ 10,000 UNITS/ML VIAL SQ SCH ×2 (00:56→11:25)
[2018-02-01] MEDS: ACETAMINOPHEN/HYDROcodone 325 MG/5 MG TAB PO PRN (03:46)
[2018-02-01 04:00] VITALS: BP 132/60; PULSE 76; RESP 18; TEMP 98.7; O2SAT 93
[2018-02-01 07:30] VITALS: BP 122/74; PULSE 75; RESP 18; TEMP 97.4; O2SAT 92
[2018-02-01] MEDS: METOPROLOL TARTRATE 25 MG TAB PO SCH (09:32)
[2018-02-01] MEDS: CIPROFLOXACIN 250 MG TAB PO SCH (09:32)
[2018-02-01] MEDS: SODIUM CHLORIDE 0.9% FLUSH 10 ML FLUSH IV FLUSH SCH (09:33)
[2018-02-01 11:28] VITALS: BP 140/75; PULSE 73; RESP 18; TEMP 98; O2SAT 96
== END 2018-02-01 13:47 | DRG 563 ==
LOC: NEPE 15:13 → NEDA 18:53 → OBSVTOIN 19:39 → N06B 21:35
PROVIDERS: ADMIT Internal Medicine; ATTEND Internal Medicine
DX: S52.122A Displaced fracture of head of left radius, initial encounter for closed fracture (principal); S32.592A Other specified fracture of left pubis, initial encounter for closed fracture; E87.0 Hyperosmolality and hypernatremia; S42.402A Unspecified fracture of lower end of left humerus, initial encounter for closed fracture; N39.0 Urinary tract infection, site not specified; J98.11 Atelectasis; I12.9 Hypertensive chronic kidney disease with stage 1 through stage 4 chronic kidney disease, or unspecified chronic kidney disease; E78.5 Hyperlipidemia, unspecified; N18.9 Chronic kidney disease, unspecified; K21.9 Gastro-esophageal reflux disease without esophagitis; M19.90 Unspecified osteoarthritis, unspecified site; M81.0 Age-related osteoporosis without current pathological fracture; W01.0XXA Fall on same level from slipping, tripping and stumbling without subsequent striking against object, initial encounter; Z85.3 Personal history of malignant neoplasm of breast; Z88.0 Allergy status to penicillin
CPT/HCPCS: 71045; 73080; 73110; 73502; 76937; 80048; 80053; 81001; 85025; 85610; 85730; 86850; 86900; 86901; 87077; 87086; 87186; 93005; 94150; 94667; J1644; J2270; J2405; J2550; J7030